=== PATIENT | male | born 1950 | race Caucasian/White ===

== ENCOUNTER 2017-03-01 21:25 | Emergency (ER) | payer MEDICARE, MEDICAID ==
[~2017-03-01] VITALS: Ht 170.2 cm; Wt 60.8 kg
[2017-03-01 21:38] VITALS: BP 109/56
[2017-03-01] MEDS ORDERED: DIPHENHYDRAMINE25 M1 ORAL (21:45)
[2017-03-01] MEDS ORDERED: KEFLEX500 MG ORAL (21:45)
[2017-03-01 21:51] VITALS: BP 109/56
--- NOTE | 2017-03-02 00:16 | Emergency Room Report ---
History of Present Illness General Chief Complaint: Wound Recheck/Suture Removal Source: Patient Present Illness HPI 66-year-old male presents ED complaining of rash. States he has multiple red bumps on his bilateral arms. Very itchy. Unclear how long it has been there. Denies any pain. Denies any fevers chills. Denies any known food or drug allergies. No other aggravating relieving factors. Denies any other associated symptoms Patient History Past Medical History: none Past Surgical History: none Social History: Denies: alcohol use, drug use, smoking Immunizations: UTD Reviewed Nursing Documentation: PMH: Agreed, PSxH: Agreed Nursing Documentation-PMH Past Medical History: No Stated History Review of Systems All Other Systems: negative except mentioned in HPI Physical Exam Vital Signs Date Time Temp Pulse Resp B/P Pulse Ox O2 Delivery O2 Flow Rate FiO2 03/01/17 21:27 59 18 109/56 98 Room Air Sp02 EP Interpretation: reviewed, normal General Appearance: no apparent distress, alert, GCS 15, non-toxic Head: normocephalic Eyes: bilateral eye PERRL, bilateral eye normal inspection ENT: normal ENT inspection Neck: normal inspection Respiratory: normal inspection Cardiovascular #1: normal inspection Gastrointestinal: normal inspection Rectal: deferred Genitourinary: no CVA tenderness Musculoskeletal: normal inspection Neurologic: alert, oriented x3, responsive, motor strength/tone normal, sensory intact, speech normal Psychiatric: judgement/insight normal, memory normal, mood/affect normal, no suicidal/homicidal ideation Skin: rash - multiple erythematous papules noted to bilateral arms Lymphatic: normal inspection Medical Decision Making Diagnostic Impression: Primary Impression: Insect bite Qualified Codes: W57.XXXA - Bitten or stung by nonvenomous insect and other nonvenomous arthropods, initial encounter ER Course Hospital Course 66-year-old male presents ED with rash to bilateral arms Differential diagnoses include: Cellulitis, dermatitis, insect bite, abscess Clinical course Patient placed on stretcher. After initial history, physical exam reveals an elderly male in no acute distress. On exam there are full erythematous papules noted to the arms bilaterally. There is no fluctuance. There is no tenderness. Clinical findings consistent with a insect bite with the possible bacterial superinfection. reassurance given Diagnosis - bug bite stable and discharged to home with prescription for Benadryl, Keflex. Instructed to followup with PMD. Instructed return to ED if symptoms recur or worsen Last Vital Signs Date Time Temp Pulse Resp B/P Pulse Ox O2 Delivery O2 Flow Rate FiO2 03/01/17 21:51 61 18 109/56 98 Room Air Status: improved Disposition: HOME, SELF-CARE Condition: Stable Scripts Diphenhydramine Hcl* (DIPHENHYDRAMINE HCL*) 25 Mg Capsule 25 MG ORAL Q6H Y for Itching, #30 CAP 0 Refills Prov: TIFF NULL M.D. 03/01/17 Cephalexin* (KEFLEX*) 500 Mg Capsule 500 MG ORAL Q6H, #28 CAP 0 Refills Prov: TIFF NULL M.D. 03/01/17 Referrals: NOT CHOSEN IPA/,REFERRING (PCP) Patient Instructions: Insect Bite, [id number]-Htba TIFF NULL M.D. Mar 02, 2017 00:15
== END 2017-03-01 21:51 | disposition home or self-care (01) ==
LOC: EMR 21:39
DX: S40.862A Insect bite (nonvenomous) of left upper arm, initial encounter (principal); S40.861A Insect bite (nonvenomous) of right upper arm, initial encounter; W57.XXXA Bitten or stung by nonvenomous insect and other nonvenomous arthropods, initial encounter; Y93.9 Activity, unspecified; Y92.9 Unspecified place or not applicable
CPT/HCPCS: 99282